=== PATIENT | male | born 1955 | race Caucasian/White ===

== ENCOUNTER → 2017-01-12 19:13 | Outpatient (CLI) | payer BC ==
[2015-07-14 08:50] VITALS: BMI 29.6
[~2017-01-12 19:13] MED LIST: ASPIRIN EC81 M1 PO; AVODART0.5 MG PO; BACTRIM DS TABL1 TAB; HYDROCODONE-APA1 TAB PO; LEVAQUIN750 MG; MIRAPEX0.5 MG PO; NITROSTAT0.4 MG SL; PLAVIX75 MG PO; VYTORIN 10-801 UDTAB PO
== END | disposition home or self-care (01) ==
LOC: D.SLEEP 19:13
DX: G47.30 Sleep apnea, unspecified (principal)

== ENCOUNTER → 2017-04-21 16:02 | Outpatient (CLI) | payer BC ==
[2015-07-14 08:50] VITALS: BMI 29.6
[2017-04-21 16:17] LABS: BASOPHILS 0.5 % (0-2); EOSINOPHILS 5.1 % (0-7); HEMOGLOBIN 16.2 g/dL (13.5-17.5); LYMPHOCYTES 26.5 % (15-50); MCH 29.3 pg (26.0-34.0); MCHC 33.8 g/dL (31.0-37.0); MCV 86.8 fL (80.0-100.0); MEAN PLATELET VOLUME 9.2 fL (7.4-10.4); MONOCYTES 7.3 % (2-11); NEUTROPHILS 59.6 % (40-80); RBC 5.53 10x6/uL (4.20-6.10); RDW 13.7 % (11.5-14.5)
[2017-04-21 16:21] LABS: PLATELET COUNT 298 10x3/uL (130-400)
[2017-04-21 16:36] LABS: ALBUMIN 2.8 g/dL (3.4-5.0); BILIRUBIN - DIRECT 0.06 mg/dL (0.00-0.30); BILIRUBIN - INDIRECT 0.16 mg/dL (0.00-1.00); BILIRUBIN - TOTAL 0.22 mg/dL (0.2-1.3); CREATININE - SERUM 0.9 mg/dL (0.6-1.3); PROTEIN - SERUM 7.9 g/dL (6.4-8.2)
== END | disposition home or self-care (01) ==
LOC: D.LABREF 16:02
DX: L03.90 Cellulitis, unspecified (principal)

== ENCOUNTER → 2017-04-28 12:40 | Outpatient (CLI) | payer BC ==
[2015-07-14 08:50] VITALS: BMI 29.6
[2017-04-28 13:12] LABS: BASOPHILS 0.3 % (0-2); EOSINOPHILS 4.2 % (0-7); HEMATOCRIT 32.3 % (42.0-54.0); HEMOGLOBIN 10.6 g/dL (13.5-17.5); IMMATURE GRANULOCYTES 0.5 % (0-5); MCH 28.6 pg (26.0-34.0); MCHC 32.8 g/dL (31.0-37.0); MCV 87.3 fL (80.0-100.0); MEAN PLATELET VOLUME 9.2 fL (7.4-10.4); MONOCYTES 7.8 % (2-11); NEUTROPHILS 62.2 % (40-80); PLATELET COUNT 338 10x3/uL (130-400); RDW 14.3 % (11.5-14.5); WBC 7.7 10x3/uL (4.8-10.8)
[2017-04-28 13:29] LABS: ALBUMIN 3.2 g/dL (3.4-5.0); BILIRUBIN - DIRECT 0.09 mg/dL (0.00-0.30); BILIRUBIN - INDIRECT 0.15 mg/dL (0.00-1.00); BILIRUBIN - TOTAL 0.24 mg/dL (0.2-1.3); CREATININE - SERUM 0.8 mg/dL (0.6-1.3); PROTEIN - SERUM 6.8 g/dL (6.4-8.2)
== END | disposition home or self-care (01) ==
LOC: D.LABREF 12:40
PROVIDERS: Orthopaedic Surgery Adult Reconstructive Orthopaedic Surgery
DX: T84.54XD Infection and inflammatory reaction due to internal left knee prosthesis, subsequent encounter (principal)

== ENCOUNTER → 2017-05-05 16:32 | Outpatient (CLI) | payer BC ==
[2015-07-14 08:50] VITALS: BMI 29.6
[2017-05-05 17:29] LABS: BASOPHILS 0.6 % (0-2); EOSINOPHILS 5.5 % (0-7); HEMATOCRIT 36.4 % (42.0-54.0); IMMATURE GRANULOCYTES 0.2 % (0-5); LYMPHOCYTES 31.2 % (15-50); MCH 28.6 pg (26.0-34.0); MCV 86.9 fL (80.0-100.0); MEAN PLATELET VOLUME 9.5 fL (7.4-10.4); MONOCYTES 8.4 % (2-11); NEUTROPHILS 54.1 % (40-80); PLATELET COUNT 341 10x3/uL (130-400); RBC 4.19 10x6/uL (4.20-6.10); RDW 14.8 % (11.5-14.5); WBC 6.2 10x3/uL (4.8-10.8)
[2017-05-05 17:48] LABS: ALBUMIN 3.7 g/dL (3.4-5.0); BILIRUBIN - DIRECT 0.08 mg/dL (0.00-0.30); BILIRUBIN - INDIRECT 0.15 mg/dL (0.00-1.00); BILIRUBIN - TOTAL 0.23 mg/dL (0.2-1.3); CREATININE - SERUM 0.8 mg/dL (0.6-1.3); PROTEIN - SERUM 7.2 g/dL (6.4-8.2)
== END | disposition home or self-care (01) ==
LOC: D.LABREF 16:32
PROVIDERS: Orthopaedic Surgery Adult Reconstructive Orthopaedic Surgery
DX: T84.54XD Infection and inflammatory reaction due to internal left knee prosthesis, subsequent encounter (principal); I25.10 Atherosclerotic heart disease of native coronary artery without angina pectoris

== ENCOUNTER → 2017-05-12 13:55 | Outpatient (CLI) | payer BC ==
[2015-07-14 08:50] VITALS: BMI 29.6
[2017-05-12 14:48] LABS: BASOPHILS 0.3 % (0-2); EOSINOPHILS 6.1 % (0-7); HEMATOCRIT 35.6 % (42.0-54.0); HEMOGLOBIN 11.6 g/dL (13.5-17.5); IMMATURE GRANULOCYTES 0.2 % (0-5); LYMPHOCYTES 26.8 % (15-50); MCH 28.7 pg (26.0-34.0); MCHC 32.6 g/dL (31.0-37.0); MCV 88.1 fL (80.0-100.0); MEAN PLATELET VOLUME 9.8 fL (7.4-10.4); MONOCYTES 6.6 % (2-11); RBC 4.04 10x6/uL (4.20-6.10); RDW 15.2 % (11.5-14.5); WBC 5.9 10x3/uL (4.8-10.8)
[2017-05-12 14:51] LABS: PLATELET COUNT 232 10x3/uL (130-400)
[2017-05-12 15:14] LABS: ALBUMIN 3.8 g/dL (3.4-5.0); BILIRUBIN - DIRECT 0.07 mg/dL (0.00-0.30); BILIRUBIN - INDIRECT 0.23 mg/dL (0.00-1.00); BILIRUBIN - TOTAL 0.3 mg/dL (0.2-1.3); CREATININE - SERUM 0.9 mg/dL (0.6-1.3); PROTEIN - SERUM 7.1 g/dL (6.4-8.2)
== END | disposition home or self-care (01) ==
LOC: D.LABREF 13:55
PROVIDERS: Orthopaedic Surgery Adult Reconstructive Orthopaedic Surgery
DX: T84.54XD Infection and inflammatory reaction due to internal left knee prosthesis, subsequent encounter (principal)

== ENCOUNTER → 2017-05-19 12:14 | Outpatient (CLI) | payer BC ==
[2015-07-14 08:50] VITALS: BMI 29.6
[2017-05-19 12:48] LABS: BASOPHILS 0.4 % (0-2); EOSINOPHILS 7.5 % (0-7); HEMATOCRIT 34.3 % (42.0-54.0); HEMOGLOBIN 11.2 g/dL (13.5-17.5); IMMATURE GRANULOCYTES 0.2 % (0-5); LYMPHOCYTES 32.7 % (15-50); MCH 28.9 pg (26.0-34.0); MCHC 32.7 g/dL (31.0-37.0); MCV 88.6 fL (80.0-100.0); MEAN PLATELET VOLUME 9.5 fL (7.4-10.4); MONOCYTES 7.9 % (2-11); NEUTROPHILS 51.3 % (40-80); PLATELET COUNT 210 10x3/uL (130-400); RBC 3.87 10x6/uL (4.20-6.10); RDW 15.3 % (11.5-14.5); WBC 4.6 10x3/uL (4.8-10.8)
[2017-05-19 13:01] LABS: ALBUMIN 3.3 g/dL (3.4-5.0); BILIRUBIN - DIRECT 0.06 mg/dL (0.00-0.30); BILIRUBIN - INDIRECT 0.08 mg/dL (0.00-1.00); BILIRUBIN - TOTAL 0.14 mg/dL (0.2-1.3); CREATININE - SERUM 0.8 mg/dL (0.6-1.3); PROTEIN - SERUM 6.4 g/dL (6.4-8.2)
== END | disposition home or self-care (01) ==
LOC: D.LABREF 12:14
PROVIDERS: Orthopaedic Surgery Adult Reconstructive Orthopaedic Surgery
DX: T84.54XD Infection and inflammatory reaction due to internal left knee prosthesis, subsequent encounter (principal)

== ENCOUNTER → 2017-05-26 12:24 | Outpatient (CLI) | payer BC ==
[2015-07-14 08:50] VITALS: BMI 29.6
[2017-05-26 13:03] LABS: BASOPHILS 0.7 % (0-2); EOSINOPHILS 5.9 % (0-7); HEMATOCRIT 37.7 % (42.0-54.0); HEMOGLOBIN 12.3 g/dL (13.5-17.5); IMMATURE GRANULOCYTES 0.2 % (0-5); LYMPHOCYTES 29.4 % (15-50); MCH 28.7 pg (26.0-34.0); MCHC 32.6 g/dL (31.0-37.0); MCV 88.1 fL (80.0-100.0); MEAN PLATELET VOLUME 9.6 fL (7.4-10.4); MONOCYTES 7.7 % (2-11); NEUTROPHILS 56.1 % (40-80); PLATELET COUNT 246 10x3/uL (130-400); RBC 4.28 10x6/uL (4.20-6.10); RDW 15.4 % (11.5-14.5); WBC 5.6 10x3/uL (4.8-10.8)
[2017-05-26 13:23] LABS: ALBUMIN 3.8 g/dL (3.4-5.0); BILIRUBIN - DIRECT 0.1 mg/dL (0.00-0.30); BILIRUBIN - INDIRECT 0.21 mg/dL (0.00-1.00); BILIRUBIN - TOTAL 0.31 mg/dL (0.2-1.3); CREATININE - SERUM 0.8 mg/dL (0.6-1.3); PROTEIN - SERUM 6.9 g/dL (6.4-8.2)
== END | disposition home or self-care (01) ==
LOC: D.LABREF 12:24
PROVIDERS: Orthopaedic Surgery Adult Reconstructive Orthopaedic Surgery
DX: T84.54XD Infection and inflammatory reaction due to internal left knee prosthesis, subsequent encounter (principal)

== ENCOUNTER → 2017-06-13 15:08 | Outpatient (CLI) | payer BC ==
[2015-07-14 08:50] VITALS: BMI 29.6
[2017-06-13 16:25] LABS: ERYTHROCYTE SEDIMENTATION RATE 7 mm/hr (0-20)
== END | disposition home or self-care (01) ==
LOC: D.LABREF 15:08
PROVIDERS: Orthopaedic Surgery Adult Reconstructive Orthopaedic Surgery
DX: I10 Essential (primary) hypertension (principal); I25.10 Atherosclerotic heart disease of native coronary artery without angina pectoris; E78.5 Hyperlipidemia, unspecified

== ENCOUNTER → 2017-06-13 15:39 | Outpatient (CLI) | payer BC ==
[2015-07-14 08:50] VITALS: BMI 29.6
== END | disposition home or self-care (01) ==
LOC: D.LABREF 15:39
DX: T84.54XD Infection and inflammatory reaction due to internal left knee prosthesis, subsequent encounter (principal); I10 Essential (primary) hypertension; I25.10 Atherosclerotic heart disease of native coronary artery without angina pectoris; E78.5 Hyperlipidemia, unspecified